=== PATIENT | female | born 1960 | race Caucasian/White ===

== ENCOUNTER 2019-08-29 07:27 | Outpatient (CLI) | payer BC, SELFPAY ==
[2019-08-29 07:54] LABS: Hemoglobin A1C 6.7 % (<5.7)
[2019-08-29 08:00] LABS: Cholesterol 184 mg/dL (0-200); HDL Direct 48 mg/dL; Triglycerides 101 mg/dL (<150)
[2019-08-29 08:11] LABS: LDL Cholesterol Direct 113 mg/dL
== END 2019-08-29 07:28 | disposition home or self-care (01) ==
PROVIDERS: PCP Internal Medicine; Visit Provider Nurse Practitioner
DX: E11.9 Type 2 diabetes mellitus without complications (principal)
CPT/HCPCS: 36415; 80061; 83036

== ENCOUNTER 2019-12-23 07:34 | Outpatient (CLI) | payer BC, SELFPAY ==
[2019-12-23 08:10] LABS: Hemoglobin A1C 6.4 % (<5.7)
[2019-12-23 08:11] LABS: Anion Gap 6 mmol/L (8-16); Blood Urea Nitrogen 14 mg/dL (7-17); Calcium 9.3 mg/dL (8.4-10.2); Carbon Dioxide 31 mmol/L (22-30); Chloride 102 mmol/L (98-107); Estimated Glomerular Filt Rate > 60; Glucose 130 mg/dL (65-105); Potassium 4.1 mmol/L (3.4-5.0); Sodium 139 mmol/L (137-145)
== END 2019-12-23 07:35 | disposition home or self-care (01) ==
LOC: ANHLAB 07:36
PROVIDERS: PCP Internal Medicine; Visit Provider Clinical Nurse Specialist
DX: E11.9 Type 2 diabetes mellitus without complications (principal)
CPT/HCPCS: 36415; 80048; 83036

== ENCOUNTER 2020-05-06 07:37 | Outpatient (CLI) | payer BC, SELFPAY ==
[2020-05-06 07:55] LABS: Basophils Absolute Auto 0.1 K/mm3 (0.0-0.1); Basophils Percent Auto 1.3 % (0.2-1.2); Eosinophils Absolute Auto 0.2 K/mm3 (0-0.3); Eosinophils Percent Auto 3.2 % (0-4.4); Hematocrit 40.9 % (37.0-47.0); Hemoglobin 13.9 g/dL (12.0-15.0); Immature Granulocyte Absolute 0.01 K/mm3 (0.00-0.031); Immature Granulocyte Percent A 0.2 % (0-0.5); Lymphocytes Absolute Auto 1.51 K/mm3 (0.9-3.2); Lymphocytes Percent Auto 28.5 % (18.3-44.2); Mean Corpuscular Hemoglobin 29.7 pg (26-34); Mean Corpuscular Volume 87.4 fl (80-100); Mean Platelet Volume 9.9 fl (7.4-10.4); Monocytes Absolute Auto 0.5 K/mm3 (0.1-0.6); Monocytes Percent Auto 9.6 % (2.6-8.5); Neutrophils Percent Auto 57.2 % (45.5-73.1); Platelet Count Result 211 k/mm3 (150-375); Red Blood Count 4.68 M/mm3 (4.2-5.4); Red Cell Distribution Width 12.1 % (11.5-14.5); White Blood Count 5.3 K/mm3 (4.5-10.0)
[2020-05-06 08:05] LABS: Cholesterol 184 mg/dL (0-200); HDL Direct 61 mg/dL; Triglycerides 72 mg/dL (<150)
[2020-05-06 08:16] LABS: LDL Cholesterol Direct 103 mg/dL
[2020-05-06 08:36] LABS: Hemoglobin A1C 6.5 % (<5.7)
== END 2020-05-06 07:38 | disposition home or self-care (01) ==
PROVIDERS: PCP Internal Medicine; Visit Provider Nurse Practitioner
DX: E11.9 Type 2 diabetes mellitus without complications (principal)
CPT/HCPCS: 36415; 80061; 83036; 85025

== ENCOUNTER 2020-09-07 07:37 | Outpatient (CLI) | payer BC, SELFPAY ==
[2020-09-07 09:08] LABS: Creatinine Urine 62.6 mg/dL
[2020-09-07 09:28] LABS: MALB Creatinine Ratio < 9.6 mg/g (0-30); Microalbumin Urine Random < 6.0 mg/L (0-16.7)
[2020-09-07 10:29] LABS: Anion Gap 9 mmol/L (8-16); Blood Urea Nitrogen 16 mg/dL (7-17); Carbon Dioxide 29 mmol/L (22-30); Chloride 102 mmol/L (98-107); Cholesterol 220 mg/dL (0-200); Estimated Glomerular Filt Rate > 60; Glucose 140 mg/dL (65-110); HDL Direct 60 mg/dL; Potassium 4.8 mmol/L (3.4-5.0); Sodium 140 mmol/L (137-145); Triglycerides 95 mg/dL (<150)
[2020-09-07 10:45] LABS: LDL Cholesterol Direct 127 mg/dL
[2020-09-09 18:42] LABS: Hemoglobin A1C 6.7 % (<5.7)
== END 2020-09-07 07:38 | disposition home or self-care (01) ==
PROVIDERS: PCP Internal Medicine; Visit Provider Nurse Practitioner
DX: E11.9 Type 2 diabetes mellitus without complications (principal)
CPT/HCPCS: 36415; 80048; 80061; 82043; 82607; 83036

== ENCOUNTER 2021-03-08 07:17 | Outpatient (CLI) | payer BC, SELFPAY ==
[2021-03-08 07:50] LABS: Anion Gap 3 mmol/L (8-16); Blood Urea Nitrogen 15 mg/dL (7-17); Calcium 9.4 mg/dL (8.4-10.2); Carbon Dioxide 30 mmol/L (22-30); Chloride 102 mmol/L (98-107); Cholesterol 211 mg/dL (0-200); Estimated Glomerular Filt Rate > 60; Glucose 154 mg/dL (65-110); HDL Direct 52 mg/dL; Potassium 4.1 mmol/L (3.4-5.0); Sodium 135 mmol/L (137-145); Triglycerides 84 mg/dL (<150)
[2021-03-08 08:01] LABS: LDL Cholesterol Direct 120 mg/dL
[2021-03-08 09:31] LABS: Hemoglobin A1C 6.9 % (<5.7)
== END 2021-03-08 07:18 | disposition home or self-care (01) ==
LOC: ANHLAB 07:19
PROVIDERS: PCP Internal Medicine; Visit Provider Nurse Practitioner
DX: E11.9 Type 2 diabetes mellitus without complications (principal)
CPT/HCPCS: 36415; 80048; 80061; 83036

== ENCOUNTER 2021-08-18 07:40 | Outpatient (CLI) | payer OTHER, SELFPAY ==
[2021-08-18 08:16] LABS: Anion Gap 6 mmol/L (8-16); Blood Urea Nitrogen 16 mg/dL (7-17); Calcium 9.3 mg/dL (8.4-10.2); Carbon Dioxide 30 mmol/L (22-30); Chloride 103 mmol/L (98-107); Estimated Glomerular Filt Rate > 60; Glucose 149 mg/dL (65-110); Potassium 3.8 mmol/L (3.4-5.0); Sodium 139 mmol/L (137-145)
[2021-08-18 08:20] LABS: Basophils Absolute Auto 0.1 K/mm3 (0.0-0.1); Basophils Percent Auto 1.1 % (0.2-1.2); Eosinophils Absolute Auto 0.3 K/mm3 (0-0.3); Eosinophils Percent Auto 4.4 % (0-4.4); Hematocrit 41.6 % (37.0-47.0); Hemoglobin 13.8 g/dL (12.0-15.0); Immature Granulocyte Absolute 0.01 K/mm3 (0.00-0.031); Immature Granulocyte Percent A 0.2 % (0-0.5); Lymphocytes Absolute Auto 1.83 K/mm3 (0.9-3.2); Lymphocytes Percent Auto 28.6 % (18.3-44.2); Mean Corpuscular HGB Conc 33.2 g/dl (32-36); Mean Corpuscular Hemoglobin 29.2 pg (26-34); Mean Corpuscular Volume 87.9 fl (80-100); Mean Platelet Volume 9.7 fl (7.4-10.4); Monocytes Absolute Auto 0.6 K/mm3 (0.1-0.6); Monocytes Percent Auto 9.5 % (2.6-8.5); Neutrophils Absolute Auto 3.6 K/mm3 (1.3-6.7); Neutrophils Percent Auto 56.2 % (45.5-73.1); Platelet Count Result 249 k/mm3 (150-375); Red Blood Count 4.73 M/mm3 (4.2-5.4); Red Cell Distribution Width 13.2 % (11.5-14.5); White Blood Count 6.4 K/mm3 (4.5-10.0)
[2021-08-18 08:39] LABS: Hemoglobin A1C 6.7 % (<5.7)
[2021-08-18 09:06] LABS: Creatinine Urine 26.8 mg/dL
[2021-08-18 11:01] LABS: Microalbumin Urine Random < 6.0 mg/L (0-16.7)
== END 2021-08-18 07:41 | disposition home or self-care (01) ==
LOC: ANHLAB 07:45
PROVIDERS: PCP Internal Medicine; Visit Provider Nurse Practitioner
DX: E11.9 Type 2 diabetes mellitus without complications (principal)
CPT/HCPCS: 36415; 80048; 82043; 83036; 85025

== ENCOUNTER 2022-01-15 07:20 | Outpatient (CLI) | payer OTHER, SELFPAY ==
[2022-01-15 07:59] LABS: Basophils Absolute Auto 0.1 K/mm3 (0.0-0.1); Basophils Percent Auto 1.2 % (0.2-1.2); Eosinophils Absolute Auto 0.4 K/mm3 (0-0.3); Eosinophils Percent Auto 7.1 % (0-4.4); Hematocrit 39.9 % (37.0-47.0); Hemoglobin 13.7 g/dL (12.0-15.0); Immature Granulocyte Absolute 0.02 K/mm3 (0.00-0.031); Immature Granulocyte Percent A 0.3 % (0-0.5); Lymphocytes Absolute Auto 2.04 K/mm3 (0.9-3.2); Lymphocytes Percent Auto 33.9 % (18.3-44.2); Mean Corpuscular HGB Conc 34.3 g/dl (32-36); Mean Corpuscular Hemoglobin 29.8 pg (26-34); Mean Corpuscular Volume 86.9 fl (80-100); Mean Platelet Volume 9.9 fl (7.4-10.4); Monocytes Absolute Auto 0.5 K/mm3 (0.1-0.6); Monocytes Percent Auto 8.5 % (2.6-8.5); Platelet Count Result 241 k/mm3 (150-375); Red Blood Count 4.59 M/mm3 (4.2-5.4); Red Cell Distribution Width 12.7 % (11.5-14.5)
[2022-01-15 08:09] LABS: Alanine Aminotransferase 29 U/L (6-35); Albumin Level 4.5 g/dL (3.5-5.1); Alkaline Phosphatase 69 U/L (38-126); Anion Gap 6 mmol/L (8-16); Aspartate Amino Transferase 25 U/L (14-36); Bilirubin,Total 0.5 mg/dL (0.2-1.3); Blood Urea Nitrogen 15 mg/dL (7-17); Calcium 8.9 mg/dL (8.4-10.2); Carbon Dioxide 29 mmol/L (22-30); Chloride 100 mmol/L (98-107); Cholesterol 221 mg/dL (0-200); Estimated Glomerular Filt Rate > 60; Glucose 159 mg/dL (65-110); HDL Direct 50 mg/dL; Potassium 3.9 mmol/L (3.4-5.0); Sodium 135 mmol/L (137-145); Triglycerides 109 mg/dL (<150)
[2022-01-15 08:21] LABS: LDL Cholesterol Direct 132 mg/dL
[2022-01-15 09:06] LABS: Creatinine Urine 43.1 mg/dL
[2022-01-15 09:17] LABS: MALB Creatinine Ratio < 13.9 mg/g (0-30); Microalbumin Urine Random < 6.0 mg/L (0-16.7)
[2022-01-15 10:22] LABS: Hemoglobin A1C 7.6 % (<5.7)
== END 2022-01-15 07:21 | disposition home or self-care (01) ==
PROVIDERS: PCP Internal Medicine; Visit Provider Nurse Practitioner
DX: E11.9 Type 2 diabetes mellitus without complications (principal)
CPT/HCPCS: 36415; 80053; 80061; 82043; 83036; 85025

== ENCOUNTER 2022-04-24 08:46 | Outpatient (CLI) | payer OTHER, SELFPAY ==
[2022-04-24 19:38] LABS: Hemoglobin A1C 7.2 % (<5.7)
[2022-04-24 19:48] LABS: Anion Gap 8 mmol/L (8-16); Blood Urea Nitrogen 13 mg/dL (7-17); Calcium 9.3 mg/dL (8.4-10.2); Carbon Dioxide 28 mmol/L (22-30); Chloride 104 mmol/L (98-107); Cholesterol 170 mg/dL (0-200); Estimated Glomerular Filt Rate > 60; Glucose 140 mg/dL (65-110); HDL Direct 52 mg/dL; Potassium 4.1 mmol/L (3.4-5.0); Sodium 140 mmol/L (137-145); Triglycerides 113 mg/dL (<150)
[2022-04-24 19:59] LABS: LDL Cholesterol Direct 91 mg/dL
[2022-04-24 20:04] LABS: Vitamin D 25 Hydroxy 28.7 ng/mL
[2022-04-24 20:13] LABS: Creatinine Urine 72.7 mg/dL
== END 2022-04-24 08:47 | disposition home or self-care (01) ==
LOC: ANHGOSHLAB 08:47
PROVIDERS: PCP Internal Medicine; Visit Provider Nurse Practitioner
DX: M85.80 Other specified disorders of bone density and structure, unspecified site (principal); E11.9 Type 2 diabetes mellitus without complications
CPT/HCPCS: 36415; 80048; 80061; 82043; 82306; 82607; 83036

== ENCOUNTER 2022-08-21 08:39 | Outpatient (CLI) | payer OTHER, SELFPAY ==
[2022-08-21 19:13] LABS: Cholesterol 153 mg/dL (0-200); HDL Direct 37 mg/dL; Triglycerides 108 mg/dL (<150)
[2022-08-21 19:23] LABS: LDL Cholesterol Direct 87 mg/dL
[2022-08-21 19:59] LABS: Vitamin D 25 Hydroxy 33.4 ng/mL
[2022-08-21 20:42] LABS: Hemoglobin A1C 7.1 % (<5.7)
== END 2022-08-21 08:40 | disposition home or self-care (01) ==
LOC: ANHGOSHLAB 08:40
PROVIDERS: PCP Internal Medicine; Visit Provider Nurse Practitioner
DX: E11.9 Type 2 diabetes mellitus without complications (principal); E55.9 Vitamin D deficiency, unspecified
CPT/HCPCS: 36415; 80061; 82306; 83036

== ENCOUNTER 2022-09-18 11:40 | Outpatient (CLI) | payer OTHER, SELFPAY ==
[2022-09-18 18:13] LABS: Basophils Absolute Auto 0.1 K/mm3 (0.0-0.1); Basophils Percent Auto 1.1 % (0.2-1.2); Eosinophils Absolute Auto 0.1 K/mm3 (0-0.3); Eosinophils Percent Auto 1.8 % (0-4.4); Hematocrit 40.9 % (37.0-47.0); Hemoglobin 13.4 g/dL (12.0-15.0); Immature Granulocyte Absolute 0.01 K/mm3 (0.00-0.031); Immature Granulocyte Percent A 0.2 % (0-0.5); Lymphocytes Absolute Auto 1.79 K/mm3 (0.9-3.2); Lymphocytes Percent Auto 29.3 % (18.3-44.2); Mean Corpuscular HGB Conc 32.8 g/dl (32-36); Mean Corpuscular Hemoglobin 28.9 pg (26-34); Mean Corpuscular Volume 88.3 fl (80-100); Mean Platelet Volume 11.5 fl (7.4-10.4); Monocytes Absolute Auto 0.6 K/mm3 (0.1-0.6); Monocytes Percent Auto 9.7 % (2.6-8.5); Neutrophils Absolute Auto 3.5 K/mm3 (1.3-6.7); Neutrophils Percent Auto 57.9 % (45.5-73.1); Platelet Count Result 258 k/mm3 (150-375); Red Blood Count 4.63 M/mm3 (4.2-5.4); Red Cell Distribution Width 13.3 % (11.5-14.5); White Blood Count 6.1 K/mm3 (4.5-10.0)
[2022-09-18 18:38] LABS: Alanine Aminotransferase 45 U/L (6-35); Albumin Level 4.3 g/dL (3.5-5.1); Alkaline Phosphatase 67 U/L (38-126); Anion Gap 7 mmol/L (8-16); Aspartate Amino Transferase 47 U/L (14-36); Bilirubin,Total 0.4 mg/dL (0.2-1.3); Blood Urea Nitrogen 17 mg/dL (7-17); Calcium 9.1 mg/dL (8.4-10.2); Carbon Dioxide 25 mmol/L (22-30); Chloride 103 mmol/L (98-107); Estimated Glomerular Filt Rate > 60; Glucose 107 mg/dL (65-110); Sodium 135 mmol/L (137-145)
[2022-09-18 18:55] LABS: Erythrocyte Sedimentation Rate 12 mm/hr (0-20)
[2022-09-18 20:39] LABS: Potassium 4.1 mmol/L (3.4-5.0)
[2022-09-23 15:21] LABS: Immunoglobulin A 160 mg/dL (70-320); TTG IGA AB <1.0 U/mL (<15.0)
== END 2022-09-18 11:41 | disposition home or self-care (01) ==
LOC: ANHGOSHLAB 11:41
PROVIDERS: PCP Internal Medicine; Visit Provider Nurse Practitioner
DX: R19.7 Diarrhea, unspecified (principal)
CPT/HCPCS: 36415; 80053; 82784; 85025; 85652; 86364

== ENCOUNTER 2022-09-19 08:05 | Outpatient (NON) | payer OTHER, SELFPAY ==
[2022-09-19 10:11] LABS: Toxigenic C. Diff NEGATIVE (NEGATIVE)
== END 2022-09-19 08:06 | disposition home or self-care (01) ==
PROVIDERS: PCP Internal Medicine; Visit Provider Nurse Practitioner
DX: R19.7 Diarrhea, unspecified (principal)
CPT/HCPCS: 87045; 87177; 87209; 87427; 87449; 87493; 89055

== ENCOUNTER 2023-02-12 08:27 | Outpatient (CLI) | payer OTHER, SELFPAY ==
[2023-02-12 19:41] LABS: Basophils Absolute Auto 0.1 K/mm3 (0.0-0.1); Basophils Percent Auto 1.7 % (0.2-1.2); Eosinophils Absolute Auto 0.1 K/mm3 (0-0.3); Eosinophils Percent Auto 2.3 % (0-4.4); Hematocrit 43.9 % (37.0-47.0); Hemoglobin 14.2 g/dL (12.0-15.0); Immature Granulocyte Absolute 0.01 K/mm3 (0.00-0.031); Immature Granulocyte Percent A 0.2 % (0-0.5); Lymphocytes Absolute Auto 1.54 K/mm3 (0.9-3.2); Lymphocytes Percent Auto 32.2 % (18.3-44.2); Mean Corpuscular HGB Conc 32.3 g/dl (32-36); Mean Corpuscular Hemoglobin 29.8 pg (26-34); Mean Corpuscular Volume 92.2 fl (80-100); Mean Platelet Volume 10.2 fl (7.4-10.4); Monocytes Absolute Auto 0.5 K/mm3 (0.1-0.6); Monocytes Percent Auto 9.4 % (2.6-8.5); Neutrophils Absolute Auto 2.6 K/mm3 (1.3-6.7); Neutrophils Percent Auto 54.2 % (45.5-73.1); Platelet Count Result 262 k/mm3 (150-375); Red Blood Count 4.76 M/mm3 (4.2-5.4); White Blood Count 4.8 K/mm3 (4.5-10.0)
[2023-02-12 19:46] LABS: Hemoglobin A1C 7.1 % (<5.7)
[2023-02-12 19:51] LABS: Alanine Aminotransferase 40 U/L (6-35); Albumin Level 4.5 g/dL (3.5-5.1); Alkaline Phosphatase 90 U/L (38-126); Anion Gap 9 mmol/L (8-16); Aspartate Amino Transferase 35 U/L (14-36); Bilirubin,Total 0.6 mg/dL (0.2-1.3); Blood Urea Nitrogen 17 mg/dL (7-17); Calcium 9.3 mg/dL (8.4-10.2); Carbon Dioxide 31 mmol/L (22-30); Chloride 100 mmol/L (98-107); Cholesterol 185 mg/dL (0-200); Estimated Glomerular Filt Rate > 60; Glucose 139 mg/dL (65-110); HDL Direct 50 mg/dL; Potassium 3.9 mmol/L (3.4-5.0); Sodium 140 mmol/L (137-145); Triglycerides 78 mg/dL (<150)
[2023-02-12 19:52] LABS: LDL Cholesterol Direct 115 mg/dL
[2023-02-12 20:11] LABS: Creatinine Urine 9.5 mg/dL
[2023-02-12 20:51] LABS: Microalbumin Urine Random < 6.0 mg/L (0-16.7)
== END 2023-02-12 08:28 | disposition home or self-care (01) ==
LOC: ANHGOSHLAB 08:32
PROVIDERS: PCP Internal Medicine; Visit Provider Nurse Practitioner
DX: E11.9 Type 2 diabetes mellitus without complications (principal)
CPT/HCPCS: 36415; 80053; 80061; 82043; 83036; 85025

== ENCOUNTER 2023-06-01 08:03 | Outpatient (CLI) | payer OTHER, SELFPAY ==
[2023-06-01 18:50] LABS: Basophils Absolute Auto 0.1 K/mm3 (0.0-0.1); Basophils Percent Auto 1.4 % (0.2-1.2); Eosinophils Absolute Auto 0.1 K/mm3 (0-0.3); Eosinophils Percent Auto 2.4 % (0-4.4); Hematocrit 42.4 % (37.0-47.0); Hemoglobin 13.8 g/dL (12.0-15.0); Lymphocytes Absolute Auto 1.77 K/mm3 (0.9-3.2); Lymphocytes Percent Auto 29.9 % (18.3-44.2); Mean Corpuscular HGB Conc 32.5 g/dl (32-36); Mean Corpuscular Hemoglobin 29.4 pg (26-34); Mean Corpuscular Volume 90.2 fl (80-100); Monocytes Absolute Auto 0.6 K/mm3 (0.1-0.6); Neutrophils Absolute Auto 3.3 K/mm3 (1.3-6.7); Neutrophils Percent Auto 56.3 % (45.5-73.1); Platelet Count Result 267 k/mm3 (150-375); Red Cell Distribution Width 12.9 % (11.5-14.5); White Blood Count 5.9 K/mm3 (4.5-10.0)
[2023-06-01 19:15] LABS: Alanine Aminotransferase 37 U/L (6-35); Albumin Level 4.7 g/dL (3.5-5.1); Alkaline Phosphatase 83 U/L (38-126); Anion Gap 9 mmol/L (4-12); Aspartate Amino Transferase 35 U/L (14-36); Bilirubin,Total 0.5 mg/dL (0.2-1.3); Blood Urea Nitrogen 19 mg/dL (7-17); Calcium 9.7 mg/dL (8.4-10.2); Carbon Dioxide 28 mmol/L (22-30); Chloride 102 mmol/L (98-107); Cholesterol 151 mg/dL (0-200); Estimated Glomerular Filt Rate > 60; Glucose 155 mg/dL (65-110); HDL Direct 50 mg/dL; Sodium 139 mmol/L (137-145); Triglycerides 90 mg/dL (<150)
[2023-06-01 19:26] LABS: LDL Cholesterol Direct 90 mg/dL
[2023-06-01 20:00] LABS: Vitamin D 25 Hydroxy 30.3 ng/mL
[2023-06-01 20:20] LABS: Hemoglobin A1C 7.1 % (<5.7)
== END 2023-06-01 08:04 | disposition home or self-care (01) ==
LOC: ANHGOSHLAB 08:05
PROVIDERS: PCP Internal Medicine; Visit Provider Nurse Practitioner
DX: E55.9 Vitamin D deficiency, unspecified (principal); E11.9 Type 2 diabetes mellitus without complications
CPT/HCPCS: 36415; 80053; 80061; 82306; 82607; 83036; 85025

== ENCOUNTER 2024-02-15 08:02 | Outpatient (CLI) | payer OTHER, SELFPAY ==
[2024-02-15 14:36] LABS: Alanine Aminotransferase 49 U/L (6-35); Albumin Level 4.3 g/dL (3.5-5.1); Alkaline Phosphatase 81 U/L (38-126); Anion Gap 6 mmol/L (4-12); Aspartate Amino Transferase 34 U/L (14-36); Bilirubin,Total 0.6 mg/dL (0.2-1.3); Blood Urea Nitrogen 17 mg/dL (7-17); Calcium 9.3 mg/dL (8.4-10.2); Carbon Dioxide 32 mmol/L (22-30); Chloride 100 mmol/L (98-107); Estimated Glomerular Filt Rate > 60; Glucose 191 mg/dL (65-110); Potassium 4.2 mmol/L (3.4-5.0); Sodium 138 mmol/L (137-145)
[2024-02-15 14:54] LABS: Creatinine Urine 10.9 mg/dL
[2024-02-15 15:01] LABS: MALB Creatinine Ratio < 55.0 mg/g (0-30); Microalbumin Urine Random < 6.0 mg/L (0-16.7)
[2024-02-16 11:17] LABS: Hemoglobin A1C 8.1 % (<5.7)
== END 2024-02-15 08:03 | disposition home or self-care (01) ==
LOC: ANHGOSHLAB 08:05
PROVIDERS: PCP Internal Medicine; Visit Provider Nurse Practitioner
DX: E11.9 Type 2 diabetes mellitus without complications (principal)
CPT/HCPCS: 36415; 80053; 82043; 83036

== ENCOUNTER 2024-04-05 13:12 | Outpatient (CLI) | payer MEDICARE, SELFPAY ==
--- NOTE | ~2024-04-05 | DEXA_ITS ---
Bone Density Report Name: FANG GALLO Age: 63 Sex: Female Ethnicity: White Date of : 1960 Indication: postmenopausal; screening for osteoporosis; Referring Provider: Brigitte Barnard Study: Bone densitometry was performed. Exam Date: April 05, 2024 Accession number: [id number] Bone Density: Region BMD T-score Z-score Classification AP Spine(L1-L4) 0.936 -1.0 0.8 Normal Femoral Neck (Left) 0.551 -2.7 -1.2 Osteoporosis Total Hip (Left) 0.730 -1.7 -0.5 Osteopenia Femoral Neck (Right) 0.555 -2.6 -1.1 Osteoporosis Total Hip (Right) 0.737 -1.7 -0.4 Osteopenia Femoral Neck Mean 0.553 -2.7 -1.1 Osteoporosis Total Hip Mean 0.733 -1.7 -0.5 Osteopenia World Health Organization criteria for BMD impression classify patients as: Normal (T-score at or above -1.0), Osteopenia (T-score between -1.0 and -2.5), or Osteoporosis (T-score at or below -2.5). 10-year Fracture Risk: FRAX not reported because: Some T-score for Spine Total or Hip Total or Femoral Neck at or below -2.5 Treated for osteoporosis Clinical Information Provided by Patient: Is being treated for osteoporosis Has used the following medications: Vitamin D Patient maximum height was 64 Menopause Age: 48 No regular weight bearing exercise Drinks caffeinated beverages Onset of menses at age 9 Number of children 1 Impression: The patient has osteoporosis, based on the Left Femoral Neck T-score. Discussion: It is important to ask patients whether they are taking their medications and to encourage continued and appropriate compliance with their osteoporosis therapies to reduce fracture risk. It is also important to review their risk factors and encourage appropriate calcium and vitamin D intakes, exercise, fall prevention and other lifestyle measures. Follow-Up: Consider a repeat BMD and Vertebral Fracture Assessment (VFA) exam in 2 years or sooner if medically necessary, to reassess this patient's status. Reported by: SULEMA on 04/05/2024 1:45:00 PM. Reviewed, dictated and finalized at location A.
== END 2024-04-05 13:13 | disposition home or self-care (01) ==
LOC: CHSIMG 13:14
PROVIDERS: PCP Internal Medicine; Visit Provider Nurse Practitioner
DX: Z12.31 Encounter for screening mammogram for malignant neoplasm of breast (principal); Z78.0 Asymptomatic menopausal state; M85.89 Other specified disorders of bone density and structure, multiple sites; M81.0 Age-related osteoporosis without current pathological fracture
CPT/HCPCS: 77063; 77067; 77080

== ENCOUNTER 2024-04-10 00:13 | Day surgery (SDC) | payer MEDICARE, SELFPAY ==
[2024-03-30 09:03] VITALS: BMI 25.7
[2024-04-10 12:30] VITALS: BP 124/65; PULSE 79; RESP 16; TEMP 35.9; O2SAT 100; BMI 25.2
--- NOTE | 2024-04-10 12:41 | WPDANESEPPF ---
Anes - Initial Pre Proc Eval Procedure: Operation Date: 04/10/24 13:45 Proposed Procedures p Esophagogastroduodenoscopy & Colonoscopy - Melecio Mendieta MD Date/Time: 04/10/24 12:41 Surgeon: Melecio Mendieta MD Pre Op Diagnosis: GERD,Screening,Family hx of malignant neoplasm Patient Data Age: 63 Gender: F Height: 1.63 m Weight: 68.1 kg Allergies Allergy/AdvReac Type Severity Reaction Status Date / Time lactose Allergy Unknown Diarrhea Verified 04/10/24 12:38 ezetimibe (From Zetia) AdvReac Mild Gastrointestinal Verified 04/10/24 12:38 Upset Penicillins AdvReac Rash Verified 04/10/24 12:38 Home Medications ?Medication ?Instructions ?Recorded ?Confirmed ?Type metformin 500 mg tablet See Rx Instructions .Route 02/29/24 04/10/24 Rx .COMPLEX #270 tabs simvastatin 5 mg tablet See Rx Instructions .Route 02/29/24 03/30/24 Rx .COMPLEX #90 tabs Patient hx anesthesia problems: none Family hx anesthesia problems: none Results Review: All pre-operative results and documents have been reviewed as part of the pre-operative evaluation. [facility] Past Medical History Medical History Fecal urgency History of anal fissures COVID-19 Uses hearing aid Lichen planus Endometrial cancer Osteopenia Osteoarthritis Chronic pain Type 2 diabetes mellitus Hyperlipidemia Surgical History Surgical History H/O: hysterectomy 2008 Family History Family History Grandparent Cerebrovascular accident Diabetes mellitus Mother Family history of diabetes mellitus in first degree relative Cerebral aneurysm Sibling Heart disease Father Cancer Other Family history of arthritis Social History Social History Social History: Caffeine-2 daily Smoking status: Never smoker Alcohol intake: never Substance use: never Substance use type: does not use Do You Feel Safe in your Home?: Yes Lack of Transportation: No Lack of Food: Never True Current Housing: I Have Housing Concerned About Future Housing: No Difficulty Paying Gas/Electric Bills: No Difficulty Paying for Meds: No Currently Unemployed: No Education: Bachelor's Degree Difficulty w/ Childcare or Family Care: No Anes - Eval Final PreProcedure Day of Procedure 04/10/24 12:41 Patient weight: normal Heart: regular rate and rhythm Lungs: clear to auscultation Airway: Mallampati scale class II Neurological: alert and oriented Last oral intake: >/= 8 hours ASA classification: III Emergent: no Anesthetic plan: proceed Anesthesia type and monitoring: general GIVS and standard monitoring Results Review: All pre-operative results and documents have been reviewed as part of the pre-operative evaluation. Informed Consent: The patient's anesthetic plan and its attendant risks and benefits were discussed with the patient/family/POA. Questions were solicited and answers provided to the satisfaction of the patient/family/POA.
[2024-04-10] MEDS: LACTATED RINGERS 1,000 ML 150 ML IV CONT (12:52)
[2024-04-10 12:54] LABS: Glucose Point of Care 149 mg/dl (65-105)
--- NOTE | 2024-04-10 13:31 | PM.IMHP ---
H&P: HPI History of Present Illness Date/Time: 04/10/24 13:31 Chief Complaint: GERD-screening colonoscopy Narrative: this patient has been suffering from GERD for several years, especially when eating certain food items such as spicy foods, tomato sauce coffee etc.. She denies dysphagia, unintentional weight loss, nausea vomiting. In addition, she is due for her next screening colonoscopy which was around 10 years ago. Review of Systems Review of Systems: All systems reviewed & are unremarkable except as noted in HPI and below PMFSH Past Medical History Medical History Fecal urgency History of anal fissures COVID-19 Uses hearing aid Lichen planus Endometrial cancer Osteopenia Osteoarthritis Chronic pain Type 2 diabetes mellitus Hyperlipidemia Surgical History Surgical History H/O: hysterectomy 2007 Family History Family History Grandparent Cerebrovascular accident Diabetes mellitus Mother Family history of diabetes mellitus in first degree relative Cerebral aneurysm Sibling Heart disease Father Cancer Other Family history of arthritis Social History Social History Social History: Caffeine-2 daily Smoking status: Never smoker Alcohol intake: never Substance use: never Substance use type: does not use Do You Feel Safe in your Home?: Yes Lack of Transportation: No Lack of Food: Never True Current Housing: I Have Housing Concerned About Future Housing: No Difficulty Paying Gas/Electric Bills: No Difficulty Paying for Meds: No Currently Unemployed: No Education: Bachelor's Degree Difficulty w/ Childcare or Family Care: No Meds Home Medications and Allergies Home Medications ?Medication ?Instructions ?Recorded ?Confirmed ?Type metformin 500 mg tablet See Rx Instructions .Route 02/29/24 04/10/24 Rx .COMPLEX #270 tabs simvastatin 5 mg tablet See Rx Instructions .Route 02/29/24 03/30/24 Rx .COMPLEX #90 tabs Allergies Allergy/AdvReac Type Severity Reaction Status Date / Time lactose Allergy Unknown Diarrhea Verified 04/10/24 12:38 ezetimibe (From Zetia) AdvReac Mild Gastrointestinal Verified 04/10/24 12:38 Upset Penicillins AdvReac Rash Verified 04/10/24 12:38 Vital Signs Vital Signs - 24 hr 04/10/24 12:30 Temperature 96.6 F L Pulse Rate 79 Respiratory Rate 16 Blood Pressure 124/65 Pulse Oximetry 100 Oxygen Delivery Room Air Exam Const: General: cooperative and healthy appearing Resp: Effort & Inspection: normal respiratory effort and able to speak in complete sentences Auscultation: clear to auscultation bilaterally Cardio: Rate: regular rate Rhythm: regular rhythm GI: Inspection: normal to inspection GI Palp: No No hepatosplenomegaly present Auscultation: normal bowel sounds Rectal Exam: deferred Skin: General skin exam: normal color Psych: Appearance: grossly normal Mental Status: mental status grossly normal Assessment and Plan Assessment and plan (1) Screening for colon cancer: Code(s): Z12.11 - Encounter for screening for malignant neoplasm of colon Status: Acute Assessment and Plan: The patient is deemed a good candidate for the procedures. Consent signed. Will proceed. (2) GERD (gastroesophageal reflux disease): Qualifiers: Esophagitis presence: esophagitis presence not specified Qualified Code(s): K21.9 - Gastro-esophageal reflux disease without esophagitis Code(s): K21.9 - Gastro-esophageal reflux disease without esophagitis Status: Acute
--- NOTE | 2024-04-10 13:53 | SUR.OPER ---
EGD ended 1349 colonoscopy started 1354
[2024-04-10 14:12] VITALS: BP 95/55; PULSE 73; RESP 20; O2SAT 100
[2024-04-10 14:22] VITALS: BP 105/61; PULSE 70; RESP 21; O2SAT 99
[2024-04-10 14:32] VITALS: BP 123/71; PULSE 83; RESP 20; O2SAT 100
== END 2024-04-10 14:44 | disposition home or self-care (01) ==
PROVIDERS: PCP Internal Medicine; Referring Provider Nurse Practitioner; Visit Provider Internal Medicine Gastroenterology
PROC: 0DJ08ZZ Inspection of Upper Intestinal Tract, Via Natural or Artificial Opening Endoscopic (ICD-10-PCS; CPT 45378; principal; 2024-04-10 13:45)
DX: Z12.11 Encounter for screening for malignant neoplasm of colon (principal); K57.30 Diverticulosis of large intestine without perforation or abscess without bleeding; K64.8 Other hemorrhoids; K21.9 Gastro-esophageal reflux disease without esophagitis; K29.51 Unspecified chronic gastritis with bleeding; Z85.42 Personal history of malignant neoplasm of other parts of uterus; E11.9 Type 2 diabetes mellitus without complications; E78.5 Hyperlipidemia, unspecified
CPT/HCPCS: 43239; G0121; 82948; 88305; J2003; J2704; J7120

== ENCOUNTER 2024-06-12 07:56 | Outpatient (CLI) | payer MEDICARE, SELFPAY ==
--- OUTSIDE RECORDS SUMMARY | 2024-06-12 08:03 | XMS_ITS | Clinical Summary ---
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 Gender Identity Not on file Sexual Orientation Not on file Plan of Treatment Health Maintenance Due Date Last Done Comments DEXA Bone Density 1960 Hepatitis C Virus (HCV) Screening 1960 TdaP Immunization 1960 Pap Smear 11/16/1979 Cervical Cancer Screening (CCS) 1988 HPV/Cotest 1988 Colonoscopy 11/16/2003 Colorectal Cancer Screening 11/16/2003 Cologuard 2008 Immunochemical Fecal Occult Blood 2008 Mammogram 2008 Pneumococcal Immunization (5 0+ years) (1 of 1 - PCV) 2008 Zoster Immunization (1 of 2) 2008 Influenza Immunization (#1) 2023 SARS-COV-2 Immunization ( - 2023-25 season) 2023 Respiratory Syncytial Virus (RSV) Immunization (Adult) (1 - 1-dose 75+ series) 2033 Hepatitis B Immunization Aged Out No longer eligible based on patient's age to complete this topic Meningococcal Immunization (ACWY) Aged Out No longer eligible based on patient's age to complete this topic Pneumococcal Immunization Combined Aged Out No longer eligible based on patient's age to complete this topic Rotavirus Immunization Aged Out No lo nger eligible based on patient's age to complete this topic
--- OUTSIDE RECORDS SUMMARY | 2024-06-12 08:03 | XMS_ITS | Clinical Summary ---
Author Organization [facility] Address [facility] [place] [address] Care Team Providers Care Manager Field Investigations Name Role Phone Aroldo Farmer DO Primary Care Provider Social History Tobacco Use Types Packs/Day Years Used Date Smoking Tobacco: Never Assessed Comments Unknown Sex and Gender Information Value Date Recorded Sex Assigned at Not on file Legal Sex Female 4:27 PM CDT Gender Identity Not on file Sexual Orientation Not on file Plan of Treatment Health Maintenance Due Date Last Done Comments Colorectal Cancer Screening Colonoscopy (10 Years) 1960 Hepatitis C 1976 DTaP, Tdap and Td Vaccines ( 1 - Tdap) 1977 Mammogram Screening 1998 Pneumococcal Vaccine: 50+ Ye ars (1 of 1 - PCV) 2008 Zoster Vaccines (1 of 2) 2008 COVID-19 Vaccine ( - 2023-2 5 season) 2023 Dexa Scan (General) 11/16/2023 RSV Immunization or 60+ Years (1 - 1-dose 75+ series) 2033 Meningococcal B Vaccine Aged Out No l onger eligible based on patient's age to complete this topic Meningococcal Vaccine Aged Out No mehreen angela eligible based on patient's age to complete this topic RSV Immunizations Under 20 Months Aged Out No longer eligible based on patient's age to complete this topic Care Teams Manager Field Investigations Relationship Specialty Start Date End Date Aroldo Farmer DO [address] [facility] [address] [place] [address] PCP - General 07/14/13
[2024-06-12 12:56] LABS: Alanine Aminotransferase 46 U/L (6-35); Albumin Level 4.6 g/dL (3.5-5.1); Alkaline Phosphatase 70 U/L (38-126); Anion Gap 8 mmol/L (4-12); Aspartate Amino Transferase 40 U/L (14-36); Bilirubin,Total 0.7 mg/dL (0.2-1.3); Blood Urea Nitrogen 12 mg/dL (7-17); Calcium 9.2 mg/dL (8.4-10.2); Carbon Dioxide 30 mmol/L (22-30); Chloride 102 mmol/L (98-107); Cholesterol 204 mg/dL (0-200); Estimated Glomerular Filt Rate > 60; Glucose 154 mg/dL (65-110); HDL Direct 56 mg/dL; Potassium 4.6 mmol/L (3.4-5.0); Sodium 140 mmol/L (137-145); Triglycerides 96 mg/dL (<150)
[2024-06-12 13:07] LABS: LDL Cholesterol Direct 117 mg/dL
[2024-06-12 13:53] LABS: Hemoglobin A1C 7.5 % (<5.7)
[2024-06-12 13:56] LABS: Vitamin D 25 Hydroxy 26.6 ng/mL
[2024-06-12 14:26] LABS: Hepatitis C Virus Antibody Negative (Negative)
== END 2024-06-12 07:57 | disposition home or self-care (01) ==
LOC: ANHGOSHLAB 07:57
PROVIDERS: PCP Internal Medicine; Visit Provider Nurse Practitioner
DX: E11.9 Type 2 diabetes mellitus without complications (principal); R74.8 Abnormal levels of other serum enzymes; E55.9 Vitamin D deficiency, unspecified
CPT/HCPCS: 36415; 80053; 80061; 82306; 83036; 86803

== ENCOUNTER 2024-07-17 08:17 | Outpatient (CLI) | payer MEDICARE, SELFPAY ==
--- NOTE | ~2024-07-17 | US_ITS ---
Limited Abdominal Sonogram: Real-time sonographic imaging of the right upper quadrant was performed. Clinical History: Abnormal serum enzyme levels Findings: The liver appears mildly echogenic, with no evidence of mass lesion or bile duct dilatatio n. Main portal vein demonstrates normal direction of flow. The gallbladder is well distended, and leticia ears normal with no evidence of gallstone or wall thickening. The common bile duct measures 4 mm. Th e visualized pancreas, aorta, and IVC are unremarkable. Impression: Probable diffuse fatty infiltration of liver. Reviewed, dictated and finalized at location M. Impression: Probable diffuse fatty infiltration of liver.
== END 2024-07-17 08:18 | disposition home or self-care (01) ==
LOC: GOSHIMG 08:17
PROVIDERS: PCP Nurse Practitioner; Visit Provider Nurse Practitioner
DX: R74.8 Abnormal levels of other serum enzymes (principal)
CPT/HCPCS: 76705

== ENCOUNTER 2024-07-17 08:33 | Outpatient (CLI) | payer MEDICARE, SELFPAY ==
--- OUTSIDE RECORDS SUMMARY | 2024-07-17 08:54 | XMS_ITS | Clinical Summary ---
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
[2024-07-17 14:06] LABS: Hepatitis B Surface Antigen Negative (Negative)
[2024-07-17 14:17] LABS: HIV 1/2 Ab P24 Ag Result Negative (Negative)
[2024-07-17 14:23] LABS: Hepatitis C Virus Antibody Negative (Negative)
[2024-07-17 15:28] LABS: Iron 76 ug/dL (37-170)
[2024-07-17 15:40] LABS: Percent Iron Saturation 21 % (20-50)
== END 2024-07-17 08:34 | disposition home or self-care (01) ==
PROVIDERS: PCP Nurse Practitioner; Visit Provider Nurse Practitioner
DX: R74.8 Abnormal levels of other serum enzymes (principal); Z11.4 Encounter for screening for human immunodeficiency virus [HIV]
CPT/HCPCS: 36415; 83540; 83550; 84443; 86703; 86803; 87340; G0432

== ENCOUNTER 2024-11-21 07:51 | Outpatient (CLI) | payer MEDICARE, SELFPAY ==
--- OUTSIDE RECORDS SUMMARY | 2024-11-21 08:00 | XMS_ITS | Clinical Summary ---
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 Gender Identity Not on file Sexual Orientation Not on file Plan of Treatment Health Maintenance Due Date Last Done Comments Hepatitis C Virus (HCV) Screening 1960 TdaP Immunization 1960 Pap Smear 11/16/1979 Cervical Cancer Screening (CCS) 1988 HPV/Cotest 1988 Cologuard 11/16/2003 Colonoscopy 11/16/2003 Colorectal Cancer Screening 11/16/2003 Immunochemical Fecal Occult Blood 11/16/2003 Pneumococcal Immunization (5 0+ years) (1 of 1 - PCV) 2008 Zoster Immunization (1 of 2) 2008 Influenza Immunization (#1) 2024 SARS-COV-2 Immunization (2023- season) 2024 Respiratory Syncytial Virus (RSV) Immunization (Adult) (1 - 1-dose 75+ series) 2033 Hepatitis B Immunization Aged Out No longer eligible based on patient's age to complete this topic Human Papillomavirus (HPV) Immunization Aged Out No longer eligible b ased on patient's age to complete this topic Meningococcal Immunization (ACWY) Aged Out No longer eligible based on patient's age to complete this topic Rotavirus Immunization Aged Out No lo nger eligible based on patient's age to complete this topic
--- OUTSIDE RECORDS SUMMARY | 2024-11-21 08:00 | XMS_ITS | Clinical Summary ---
Author Organization [facility] Address [address] [facility] [place] [address] Care Team Providers Care Remote Coders Name Role Phone Unavailable Primary Care Provider Unavailabl e Source Comments [facility],non-owned Affiliates and Associated Physician Practices is amultiple site organization consisting of ambulatory clinics and hospital sitesin [place], [place], [place] and [place]. This disclosure is being madepursuant to the Care Everywhere program and may not contain all information available regarding this patient. Last updated 17.[facility] Encounters Date Type Department Care Team Description 09/19/2024 Travel from Last 3 Months Social History Tobacco Use Types Packs/Day Years Used Date Smoking Tobacco: Never Assessed Comments Unknown Sex and Gender Information Value Date Recorded Sex Assigned at Not on file Legal Sex Female 4:36 PM CDT Gender Identity Not on file Sexual Orientation Not on file Plan of Treatment Upcoming Encounters Date Type Department Care Team (Late st Contact Info) Description 12/26/2024 2:00 PM SOLAR PANEL INSTALLER Procedure visit [facility] [address] [place] [id number] 12/26/2024 2:30 PM SOLAR PANEL INSTALLER Office Visit [facility] [address] [place] [id number] Anitha Kim, OPERATIONS SUPERINTENDENT-DIRECTOR OF EMERGENCY NURSING [address] [place] [address] [facility] [place] [address] Health Maintenance Due Date Last Done Comments BONE DENSITY TESTING 1960 COLOGUARD (AGES 45-75) - COL ON CA SCREENING 1960 COLON MONITORING 1960 COLONOSCOPY - COLON CA SCREENING 1958 CT COLONOGRAPHY - COLON CA SCREENING 1960 Colorectal Cancer Screening 1960 FIT - COLON CA SCREENING 1960 FLEX SIG - COLON CA SCREENING 1960 LIPID TESTING 1960 MAMMOGRAM 1960 HEPATITIS C SCREENING 11/10/1976 DTAP/TDAP/TD VACCINES (1 - Tdap) 1977 PNEUMOCOCCAL VACCINE 50+ (1 of 1 - PCV) 2008 ZOSTER VACCINE (1 of 2) 2008 DEPRESSION SCREENING 02/09/2024 MEDICARE AWV CALENDAR YEAR 2024 COVID-19 VACCINE (1 - 2023-2 5 season) 2024 INFLUENZA VACCINE (#1) 2024 Respiratory Syncytial Virus (RSV) Vaccine Pt: or over 60 yrs (1 - 1-dose 75+ series) 2033 HEPATITIS B VACCINE Aged Out No longe r eligible based on patient's age to complete this topic HIB VACCINE Aged Out No longer eligi ble based on patient's age to complete this topic HPV VACCINE Aged Out No longer eligi ble based on patient's age to complete this topic MENINGOCOCCAL (Group B) VACC INE SHARED DECISION-MAKING Aged Out No longer eligibl e based on patient's age to complete this topic MENINGOCOCCAL GROUPS A/C/Y/W VACCINE Aged Out No longer eligible b ased on patient's age to complete this topic Insurance [employer] MEDICARE ADV SELF PAY NO INSURANCE Member Subscriber Plan / Payer (Ef fective for All Dates) Name:Fang Shabazz Member ID:Not on file Relation to Subscriber:Not on file Name:FANG SHABAZZ Subscriber ID:Not on file (Home) Address: [facility] [place] [address] Payer ID:Not on file Group ID:Not on file Type:Self Pay Address: [place], [place]
[2024-11-21 12:55] LABS: Hematocrit 42.0 % (37.0-47.0); Hemoglobin 13.7 g/dL (12.0-15.0); Immature Granulocyte Percent A 0.4 % (0-0.5); Lymphocytes Absolute Auto 1.82 K/mm3 (0.9-3.2); Mean Corpuscular HGB Conc 32.6 g/dl (32-36); Mean Corpuscular Hemoglobin 29.0 pg (26-34); Mean Corpuscular Volume 88.8 fl (80-100); Nucleated Red Blood Cells Absolute Auto 0.000 K/mm3 (0.0-0.012); Nucleated Red Blood Cells Perc 0.0 % (0.0-0.2); Platelet Count Result 239 k/mm3 (150-375); Red Blood Count 4.73 M/mm3 (4.2-5.4); White Blood Count 6.7 K/mm3 (4.5-10.0)
[2024-11-21 13:02] LABS: Alanine Aminotransferase 47 U/L (6-35); Albumin Level 4.5 g/dL (3.5-5.1); Alkaline Phosphatase 65 U/L (38-126); Anion Gap 8 mmol/L (4-12); Aspartate Amino Transferase 54 U/L (14-36); Bilirubin,Total 0.6 mg/dL (0.2-1.3); Blood Urea Nitrogen 19 mg/dL (7-17); Calcium 9.2 mg/dL (8.4-10.2); Carbon Dioxide 31 mmol/L (22-30); Chloride 98 mmol/L (98-107); Estimated Glomerular Filt Rate > 60; Glucose 149 mg/dL (65-110); Potassium 4.1 mmol/L (3.4-5.0); Sodium 137 mmol/L (137-145); Total Protein 7.5 g/dL (6.3-8.2)
[2024-11-21 15:42] LABS: Hemoglobin A1C 6.9 % (<5.7)
[2024-11-21 17:10] LABS: MALB Creatinine Ratio 44.8 mg/g (0-30)
== END 2024-11-21 07:52 | disposition home or self-care (01) ==
LOC: ANHGOSHLAB 07:52
PROVIDERS: PCP Nurse Practitioner; Visit Provider Nurse Practitioner
DX: E78.5 Hyperlipidemia, unspecified (principal); E11.9 Type 2 diabetes mellitus without complications
CPT/HCPCS: 36415; 80053; 82043; 83036; 85025

== ENCOUNTER 2025-01-24 07:38 | Outpatient (CLI) | payer MEDICARE, SELFPAY ==
--- NOTE | ~2025-01-24 | NM_ITS ---
EXAM: NM gastric emptying study DATE: 01/24/2025 12:46 INDICATION: Gastroesophageal reflux disease without esophagitis TECHNIQUE: A gastric emptying study was performed using the methodology of Isidro ISSA, et al. J Nucl Med 2007; 48:568-572. The patient was given a meal consisting of 2 scrambled eggs labeled with 0.983 mCi Tc-99m sulfur colloid, 2 slices of toast, two packages of jam, and approximately 120 mL of water. Simultaneous anterior and posterior 1-min images of the abdomen were obtained with the patient supine at multiple time points over a total period of 4 hours. The geometric mean of anterior and posterior views was determined, and the percentage retention was calculated for each time point. COMPARISON: None. FINDINGS: Gastric retention of the radiotracer-labeled meal was 61%, 34%, and 19% at the 1-hour, 2-hour, and 4-hour time points, respectively. With this technique, apparent rapid gastric emptying is suggested by <30% gastric retention at 1 hour. Delayed gastric emptying is defined by gastric retention of >90% at 1 hour, >60% retention at 2 hours, or >10% retention at 4 hours. IMPRESSION: 1. Delayed gastric emptying. Reviewed, dictated and finalized at location [facility]. [facility]
--- OUTSIDE RECORDS SUMMARY | 2025-01-24 07:41 | XMS_ITS | Clinical Summary ---
Author Organization [facility] Address [facility] [place] [address] Care Team Providers Care Check Weigher Name Role Phone Aroldo Farmer DO Primary Care Provider [phone] Social History Tobacco Use Types Packs/Day Years [...] 2008 Zoster Vaccines (1 of 2) 2008 Dexa Scan (General) 11/16/2023 COVID-19 Vaccine (1 - 2024-2 6 season) 2024 Influenza Adult (#1) 2024 RSV Immunization or 60+ Years (1 - 1-dose 75+ series) 2033 Hepatitis A Vaccines Aged Out No long er eligible based on patient's age to complete this topic Meningococcal B Vaccine Aged Out No l onger eligible based on patient's age to complete this topic Meningococcal Vaccine Aged Out No mehreen angela eligible based on patient's age to complete this topic RSV Immunizations Under 20 Months Aged Out No longer eligible based on patient's age to complete this topic Care Teams Check Weigher Relationship Specialty Start Date End Date Aroldo Farmer DO [address] [facility] [address] [place] [address] [facility] - General 07/14/13
--- OUTSIDE RECORDS SUMMARY | 2025-01-24 07:41 | XMS_ITS | Clinical Summary ---
Author Organization [facility] Address [address] [place] [address] Care Team Providers Care Concrete Block Mason Name Role Phone Brigitte Barnard DEMIAN-PROCESS CONTROL MANAGER Primary Care Provider [phone] Source Comments [facility],non-owned Affiliates and Associated Physician Practices is amultiple site organization consisting of ambulatory clinics and hospital sitesin [place], [place], [place] and [place]. This disclosure is being madepursuant to the Care Everywhere program and may not contain all information available regarding this patient. Last updated 17.[facility] Allergies Active Allergy Reactions Criticality Noted Date Comments Ezetimibe Other,GI Discomfort Low 03/30/2024 GI Upset Lactose Diarrhea 03/30/2024 Penicillins Rash,Unknown Medium 12/26/2024 She thinks she got a rash but cannot remember, has not used in a long time Medications * Be aware that medications may not be up to date on this document. Alwaysverify current medications with the patient. metFORMIN (Glucophage) 500 MG tablet Take 1 (one) tablet by mouth 3 times daily 11/16/2024 Active Active Problems No known active problems Encounters Date Type Department Care Team Description 01/22/2025 Telephone [facility] [address] [place] [id number] Devon Webber, RN Scheduling Outreach (Esophageal manometry w/24 hour pH study scheduling attempt x2) 01/10/2025 Telephone [facility] [address] [place] [address] Devon Webber, RN Scheduling Outreach (Esophageal manometry w/24 hour pH study scheduling attempt x1) 12/28/2024 Results Follow-Up [facility] Physician [facility] - [address] [address] Anitha Kim APRN-CNP 12/26/2024 2:36 PM SCHOOL ATHLETIC DIRECTOR - 12/26/2024 11:59 PM SCHOOL ATHLETIC DIRECTOR Hospital Encounter [facility] LAB OP DRAW STATION [address] [place] [address] Discharge Disposition: Home or Self Care 12/26/2024 2:30 PM SCHOOL ATHLETIC DIRECTOR Office Visit [facility] - [address] [phone] Unknown, Provider Anitha Kim APRN-CNP Elevated liver enzymes (Primary Dx); Hepatic steatosis 12/26/2024 2:00 PM SCHOOL ATHLETIC DIRECTOR Procedure visit [facility] Physician [facility] - [address] [phone] Unknown, Provider Elevated liver enzymes 12/26/2024 Travel from Last 3 Months Social History Tobacco Use Types Packs/Day Years Used Date Smoking Tobacco: Never Smokeless Tobacco: Never Tobacco Cessation:Counseling Given: Not Answered Alcohol Use Standard Drinks/Week Comments Never 0 (1 standard drink = 0.6 oz pur e alcohol) Comments Unknown Sex and Gender Information Value Date Recorded Sex Assigned at Not on file Legal Sex Female 4:36 PM CDT Gender Identity Not on file Sexual Orientation Not on file Last Filed Vital Signs Vital Sign Reading Time Taken Comments Blood Pressure 118/65 12/26/2024 2:02 PM SCHOOL ATHLETIC DIRECTOR Pulse 74 12/26/2024 2:02 PM SCHOOL ATHLETIC DIRECTOR Temperature 36.4 C (97.6 F) 12/26/2024 2:02 PM SCHOOL ATHLETIC DIRECTOR Respiratory Rate - - Oxygen Saturation 100% 12/26/2024 2:02 PM SCHOOL ATHLETIC DIRECTOR Inhaled Oxygen Concentration - - Weight 65.3 kg (144 lb) 12/26/2024 2:02 PM SCHOOL ATHLETIC DIRECTOR Height 162.6 cm (5' 4) 12/26/2024 2:02 PM SCHOOL ATHLETIC DIRECTOR Body Mass Index 24.72 12/26/2024 2:02 PM SCHOOL ATHLETIC DIRECTOR Plan of Treatment Upcoming Encounters Date Type Department Care Team (Late st Contact Info) Description 03/30/2025 10:00 AM SCHOOL ATHLETIC DIRECTOR Office Visit [facility] - GI [address] [place] [address] Anitha Kim, AMUSEMENT CENTRE MANAGER-PROCESS CONTROL MANAGER [address] [facility] [address] [place] [address] Health Maintenance Due Date Last Done Comments BONE DENSITY TESTING 1958 COLON MONITORING 1958 COLONOSCOPY - COLON CA SCREENING 1958 CT COLONOGRAPHY - COLON CA SCREENING 1958 FIT - COLON CA SCREENING 1958 FLEX SIG - COLON CA SCREENING 1958 LIPID TESTING 1960 MAMMOGRAM 1958 HEPATITIS C SCREENING 11/10/1976 DTAP/TDAP/TD VACCINES (1 - Tdap) 1977 PNEUMOCOCCAL VACCINE 50+ (1 of 1 - PCV) 2008 ZOSTER VACCINE (1 of 2) 2008 COLOGUARD (AGES 45-75) - COL ON CA SCREENING 04/24/2023 04/23/2020 Colorectal Cancer Screening 04/24/2023 DEPRESSION SCREENING 02/09/2024 MEDICARE AWV CALENDAR YEAR 2024 COVID-19 VACCINE (1 - 2024-2 6 season) 2024 INFLUENZA VACCINE (#1) 2024 Respiratory [...] on patient's age to complete this topic Goals Goal Patient Goal Type Associated Problems Recent Progress Patient-Stated? Author Medication Management General On track( 025 2:26 PM SCHOOL ATHLETIC DIRECTOR) No Nory Shannon, RN Note: Expected end date: ongoing Interventions: Take all medications as prescribed Let your doctor know right away about any changes in your medications Make sure to request a refill of your medication at least one week prior to your last dose Procedures Procedure Name Priority Date/Time Associated Diagnosis Comments IRON + TRANSFERRIN PANEL Routine 12/26/2024 3:01 PM SCHOOL ATHLETIC DIRECTOR Elevated liver enzymes HEPATITIS B SURFACE ANTIBODY QUANT Routine 12/26/2024 3:01 PM SCHOOL ATHLETIC DIRECTOR Elevated liver enzymes HEPATITIS B CORE ANTIBODY TOTAL Routine 12/26/2024 3:01 PM SCHOOL ATHLETIC DIRECTOR Elevated liver enzymes GGT Routine 12/26/2024 3:01 PM SCHOOL ATHLETIC DIRECTOR Elevated liver enzymes FERRITIN Routine 12/26/2024 3:01 PM SCHOOL ATHLETIC DIRECTOR Elevated liver enzymes MARTINEZ BLOOD SCREEN W/REFLEX TITER Routine 12/26/2024 3:01 PM SCHOOL ATHLETIC DIRECTOR Elevated liver enzymes [id number] BLOOD Routine 12/26/2024 3:01 PM SCHOOL ATHLETIC DIRECTOR Elevated liver enzymes COMPREHENSIVE METABOLIC PANEL Routine 12/26/2024 3:01 PM SCHOOL ATHLETIC DIRECTOR Elevated liver enzymes CBC W AUTO DIFFERENTIAL Routine 12/26/2024 3:01 PM SCHOOL ATHLETIC DIRECTOR Elevated liver enzymes AL LIVER ELASTOGRAPHY W/O IMAG W/I&R Routine 12/26/2024 1:45 PM SCHOOL ATHLETIC DIRECTOR Elevated liver enzymes from Last 3 Months Results * HEPATITIS B SURFACE ANTIBODY QUANT (12/26/2024 3:01 PM SCHOOL ATHLETIC DIRECTOR) Hepatitis B Virus Surface Antibody Non-react lee Non-react lee 12/26/2024 4:50 PM SCHOOL ATHLETIC DIRECTOR [facility] Comment: < 8 mIU/mL Hepatitis B surface Antibody (HBsAb). Nonreactive for HBsAb - individual is considered not immune to Hepatitis B Virus infection. Hepatitis B Surface Antibody Quantitative <3.0 <8.0 mIU/mL 12/26/2024 4:50 PM SCHOOL ATHLETIC DIRECTOR [facility] Comment: Hepatitis B Surface Antibody Numeric Result Interpretation: Nonreactive: <8.0 mIU/mL Indeterminate: 8.0 - 12.0 mIU/mL Reactive: >12.0 mIU/mL Blood BLOOD SPECIMEN / Unknown Lab Venipuncture / Unknown 12/26/2024 3:01 PM SCHOOL ATHLETIC DIRECTOR 12/26/2024 3:54 PM SCHOOL ATHLETIC DIRECTOR Narrative [facility] - 12/26/2024 4:50 PM SCHOOL ATHLETIC DIRECTOR This assay should not be used for blood, plasma, or tissue donor screening. This assay is not recommended for neonates born to HBV-infected or suspected HBV-infected mothers. Anitha Kim AMUSEMENT CENTRE MANAGER-PROCESS CONTROL MANAGER LAB - SEROLOGY CHARANJIT JHAVERI Final Result [facility] [address] [place] [address], [facility] [phone] * MARTINEZ BLOOD SCREEN W/REFLEX TITER (12/26/2024 3:01 PM SCHOOL ATHLETIC DIRECTOR) MARTINEZ IgG None Detected None Detected 12/28/2024 12:04 AM SCHOOL ATHLETIC DIRECTOR [facility] ([facility]) Comment: No Anti-Nuclear Antibodies (MARTINEZ) detected by ECTOR. No further testing will be performed. If suspicion of connective tissue disease is strong and MARTINEZ ECTOR is negative, consider testing for MARTINEZ by IFA ([id number]). INTERPRETIVE INFORMATION: Anti-Nuclear Antibodies (MARTINEZ), IgG by ECTOR Antinuclear Antibodies (MARTINEZ), IgG by ECTOR: MARTINEZ specimens are screened using enzyme-linked immunosorbent assay (ECTOR) methodology. All ECTOR results reported as Detected are further tested by indirect fluorescent assay (IFA) using HEp-2 substrate with an IgG-specific conjugate. The MARTINEZ ECTOR screen is designed to detect antibodies against dsDNA, histones, SS-A (Ro), SS-B (La), Hodge, Hodge/MEDICAL ASSISTANT, Scl-70, Valerie-1, centromeric proteins, other antigens extracted from the HEp-2 cell nucleus. MARTINEZ ECTOR assays have been reported to have lower sensitivities than MARTINEZ IFA for systemic autoimmune rheumatic diseases (SARD). Negative results do not necessarily rule out SARD. Blood BLOOD SPECIMEN / Unknown Lab Venipuncture / Unknown 12/26/2024 3:01 PM SCHOOL ATHLETIC DIRECTOR 12/26/2024 3:58 PM SCHOOL ATHLETIC DIRECTOR Anitha Kim AMUSEMENT CENTRE MANAGER-PROCESS CONTROL MANAGER LAB - CHEMISTRY ORD ERABLES Final Result Performing Organization Address City/[facility]/ZIP Co de Phone Number [facility]) [address] [place], [place] [address] * ROUBM-[id number]-INNLNDOWOGM BLOOD (12/26/2024 3:01 PM SCHOOL ATHLETIC DIRECTOR) [facility] Xzuga-9-Gkfjbs ypsin 124 90 - 200 mg/dL 12/26/2024 4:09 PM [facility] Blood BLOOD SPECIMEN / Unknown Lab Venipuncture / Unknown 12/26/2024 3:01 PM SCHOOL ATHLETIC DIRECTOR 12/26/2024 3:54 PM SCHOOL ATHLETIC DIRECTOR Anitha Kim AMUSEMENT CENTRE MANAGER-[facility] LAB - CHEMISTRY ORD ERABLES Final Result Performing Organization Address [facility]/ZIP Co de Phone Number [address] [address], [facility] [phone] * CBC WITH DIFFERENTIAL (12/26/2024 3:01 PM SCHOOL ATHLETIC DIRECTOR) [facility] WBC 7.7 4.0 - 10.7 x10E9/L 12/26/2024 4:06 PM [facility] RBC Count 4.60 3.90 - 5.20 x10E12/L 12/26/2024 4:06 PM [facility] Hemoglobin 13.4 11.9 - 15.8 g/dL 12/26/2024 4:06 PM [facility] Hematocrit 39.7 34.8 - 46.1 % 12/26/2024 4:06 PM [facility] MCV 86.3 80.0 - 98.0 fL 12/26/2024 4:06 PM [facility] MCH 29.1 26.7 - 33.6 pg 12/26/2024 4:06 PM [facility] MCHC 33.8 31.7 - 36.3 g/dL 12/26/2024 4:06 PM [facility] RDW-CV 13.0 11.3 - 14.8 % 12/26/2024 4:06 PM [facility] Platelet Count 275 150 - 420 x10E9/L 12/26/2024 4:06 PM [facility] MPV 10.5 7.8 - 11.4 fL 12/26/2024 4:06 PM [facility] Neutrophil % 62.1 41.0 - 74.0 % 12/26/2024 4:06 PM [facility] Lymphocyte % 26.9 17.0 - 47.0 % 12/26/2024 4:06 PM [facility] Monocyte % 7.7 3.0 - 11.0 % 12/26/2024 4:06 PM [facility] Eosinophil % 2.1 0.0 - 7.0 % 12/26/2024 4:06 PM [facility] Basophil % 0.9 0.0 - 1.6 % 12/26/2024 4:06 PM [facility] Immature Granulocytes % 0.3 0.0 - 1.0 % 12/26/2024 4:06 PM [facility] Neutrophil Absolute 4.78 1.60 - 7.50 x10E9/L 12/26/2024 4:06 PM [facility] Lymphocyte Absolute 2.07 1.00 - 4.40 x10E9/L 12/26/2024 4:06 PM [facility] Monocyte Absolute 0.59 0.15 - 1.00 x10E9/L 12/26/2024 4:06 PM [facility] Eosinophil Absolute 0.16 0.00 - 0.60 x10E9/L 12/26/2024 4:06 PM [facility] Basophil Absolute 0.07 0.00 - 0.13 x10E9/L 12/26/2024 4:06 PM [facility] Blood BLOOD SPECIMEN / Unknown Lab Venipuncture / Unknown 12/26/2024 3:01 PM SCHOOL ATHLETIC DIRECTOR 12/26/2024 3:46 PM SCHOOL ATHLETIC DIRECTOR us Anitha Ezequiel Kim AMUSEMENT CENTRE MANAGER-PROCESS CONTROL MANAGER LAB - HEMATOLOGY OR DERABLES Final Result [facility] [address] [place] [address], [place] [phone] * (ABNORMAL) COMPREHENSIVE METABOLIC PANEL (12/26/2024 3:01 PM SCHOOL ATHLETIC DIRECTOR) BUN 17 7 - 26 mg/dL 12/26/2024 4:15 PM [facility] Creatinine 0.65 0.56 - 0.96 mg/dL 12/26/2024 4:15 PM [facility] Sodium 140 136 - 145 mmol/L 12/26/2024 4:15 PM [facility] Potassium 4.4 3.5 - 4.5 mmol/L 12/26/2024 4:15 PM [facility] Chloride 104 98 - 107 mmol/L 12/26/2024 4:15 PM [facility] CO2 27 22 - 29 mmol/L 12/26/2024 4:15 PM [facility] Glucose 141(H) 70 - 99 mg/dL 12/26/2024 4:15 PM [facility] Calcium 9.4 8.4 - 10.2 mg/dL 12/26/2024 4:15 PM [facility] Protein Total 7.0 6.0 - 8.3 g/dL 12/26/2024 4:15 PM [facility] Albumin 4.4 3.4 - 5.0 g/dL 12/26/2024 4:15 PM [facility] Bilirubin Total 0.3 0.2 - 1.2 mg/dL 12/26/2024 4:15 PM [facility] Alkaline Phosphatase 59 40 - 150 U/L 12/26/2024 4:15 PM [facility] ALT 44 5 - 55 U/L 12/26/2024 4:15 PM [facility] AST 35(H) 5 - 34 U/L 12/26/2024 4:15 PM [facility] Anion Gap 9 6 - 16 12/26/2024 4:15 PM [facility] BUN/Creatinine Ratio 26(H) 7 - 23 12/26/2024 4:15 PM [facility] Osmolality Calculated 294 275 - 295 mOsm/kg 12/26/2024 4:15 PM [facility] Albumin/Globulin Ratio 1.7 1.1 - 2.3 12/26/2024 4:15 PM [facility] eGFR by CKD-EPI >90 >=90 mL/min/1.7 3 m2 12/26/2024 4:15 PM [facility] Comment:Estimated Glomerular Filtration Rate (eGFR) calculated using the CKD-EPI Creatinine Equation (2020), per the National Kidney Foundation and [place] Society of Nephrology recommendations. Blood BLOOD SPECIMEN / Unknown Lab Venipuncture / Unknown 12/26/2024 3:01 PM SCHOOL ATHLETIC DIRECTOR 12/26/2024 3:46 PM SCHOOL ATHLETIC DIRECTOR Anitha Kim APRN-PROCESS CONTROL MANAGER LAB - CHEMISTRY ORD ERABLES Final Result [address] [address], [facility] [phone] * HEPATITIS B CORE ANTIBODY TOTAL (12/26/2024 3:01 PM SCHOOL ATHLETIC DIRECTOR) Pathologist [facility] HBc Antibody Total Non-reacti ve Non-reacti ve 12/26/2024 4:27 PM [facility] Blood BLOOD SPECIMEN / Unknown Lab Venipuncture / Unknown 12/26/2024 3:01 PM SCHOOL ATHLETIC DIRECTOR 12/26/2024 3:54 PM SCHOOL ATHLETIC DIRECTOR Anitha Kim AMUSEMENT CENTRE MANAGER-PROCESS CONTROL MANAGER LAB - CHEMISTRY ORD ERABLES Final Result [address] [address], [place] [phone] * GGT (12/26/2024 3:01 PM SCHOOL ATHLETIC DIRECTOR) Pathologist [facility] GGT 25 9 - 64 Units/L 12/26/2024 4:15 PM [facility] Blood BLOOD SPECIMEN / Unknown Lab Venipuncture / Unknown 12/26/2024 3:01 PM SCHOOL ATHLETIC DIRECTOR 12/26/2024 3:46 PM SCHOOL ATHLETIC DIRECTOR [facility] - CHEMISTRY ORD ERABLES Final Result [address] [address], [place] [phone] * IRON + TRANSFERRIN PANEL (12/26/2024 3:01 PM SCHOOL ATHLETIC DIRECTOR) Iron 66 40 - 150 ug/dL 12/26/2024 4:10 PM SCHOOL ATHLETIC DIRECTOR [facility] Transferrin 285 174 - 382 mg/dL 12/26/2024 4:10 PM SCHOOL ATHLETIC DIRECTOR [facility] Transferrin Saturation % 19 16 - 50 % 12/26/2024 4:10 PM SCHOOL ATHLETIC DIRECTOR [facility] TIBC Calculated 356 240 - 450 ug/dL 12/26/2024 4:10 PM SCHOOL ATHLETIC DIRECTOR [facility] Blood BLOOD SPECIMEN / Unknown Lab Venipuncture / Unknown 12/26/2024 3:01 PM SCHOOL ATHLETIC DIRECTOR 12/26/2024 3:54 PM SCHOOL ATHLETIC DIRECTOR Result [facility]a [facility] - CHEMISTRY ORD ERABLES Final Result Performing Organization Address [facility]/ZIP Co de Phone Number [address] [address], [place] [phone] * FERRITIN (12/26/2024 3:01 PM SCHOOL ATHLETIC DIRECTOR) Ferritin 191 13 - 204 ng/mL 12/26/2024 4:27 PM SCHOOL ATHLETIC DIRECTOR [facility] Blood BLOOD SPECIMEN / Unknown Lab Venipuncture / Unknown 12/26/2024 3:01 PM SCHOOL ATHLETIC DIRECTOR 12/26/2024 3:54 PM SCHOOL ATHLETIC DIRECTOR Anitha Kim AMUSEMENT CENTRE [facility] LAB - CHEMISTRY ORD ERABLES Final Result Performing Organization Address City/[facility]/ZIP Co de Phone Number [address] [address], [place] [phone] * AL LIVER ELASTOGRAPHY W/O IMAG W/I&R (12/26/2024 1:45 PM SCHOOL ATHLETIC DIRECTOR) Narrative Fernando Mares MD - 12/26/2024 1:45 PM SCHOOL ATHLETIC DIRECTOR Fernando Calloway MD 12/28/2024 8:25 AM Diagnosis: Elevated liver enzymes RN verified patient NPO for prior 3 hours. Procedure explained. Date of Exam: 12/26/2024 Liver Stiffness: (LSM, kPa) median: 7.8 IQR/Median% (ideally < 30%): 9% CAP (controlled attenuation parameter): 277 Technical Difficulty: None Ordering Provider: Brigitte Barnard APRN-CNP Fax Fibroscan interpretation: I have personally reviewed the Fibroscan report and associated tracings. The calculated Liver Stiffness Measurement (LSM, kPa) indicates that: The probability of advanced liver fibrosis is: low to moderate. The loss of ultrasound signal, (controlled attenuation parameter, CAP [dB/m]), indicates that the probability of hepatic steatosis is: moderate. Fernando Smith MD The following criteria are used to indicate the probability of advanced (stage 3-4) fibrosis: < 7.0 kPa: low 7.0-8.9 kPa: low to moderate 9.0-14.9 kPa: moderate 15-20 kPa: high > 20 kPa: very high Liver stiffness > 12 kPa is associated with an increased risk of cirrhosis-related complications over the next 3-5 years (Bobreanneier, 202). Liver stiffness > 20 kPa is also associated with a high probability of complications of portal hypertension including varices and ascites. Liver stiffness > 50 kPa is associated with a high risk of variceal bleeding. These interpretations are based on the following published data: Ari J, Hagstr m H, Ekstedt M, Chiki C, Bonacci M, Cure S, Ampuero J, Nasr P, Tallab L, Canleet CM, Kehoney S, S ncsimba Y, Jatin E, Dar A, Tulio M, Riokenny J, Manan A and Ulisses-Carl M. Non-invasive tests accurately stratify patients with NAFLD based on their risk of liver-related events. J Hepatol (2021) 76: 1971-6691. Kathia PJ, Vanita M, Mirta M, et al. Accuracy of FibroScan controlled attenuation parameter and liver stiffness measurement in assessing steatosis and fibrosis in patients with nonalcoholic fatty liver disease. Gastroenterology 2019;156:5237-2297. Juana MS, Alex R, Van Natta ML, et al. Vibration-controlled transient elastography to assess fibrosis and steatosis in patients with nonalcoholic fatty liver disease. Clin Gastroenterol Hepatol 2019;17:156-163. Note that scores have been developed that incorporate the Fibroscan liver stiffness measurement from large cohorts of patients with liver biopsies to further refine the ability of Fibroscan to identify patients with MASH and advanced fibrosis. These include the FAST (Fibroscan-AST) score (Tamika, 2021) and the Agile3+ and Agile4 scores (Nirav, 2022; Maria Eugenia, 2023). Tamika TA, Van Natta ML, Filiberto M, Charbel A, et al. Validation of the accuracy of the FAST score for detecting patients with at-risk nonalcoholic steatohepatitis (LE) in a [facility] cohort and comparison to other non-invasive algorithms. PLoS ONE (2021) 17: [id number]. Nirav AJ, Juliet J, Younjose ZM, et al. Enhanced diagnosis of advanced fibrosis and cirrhosis in individuals with NAFLD using FibroScan-based Agile scores. J Hepatol (2022) 78: 247-259. Maria Eugenia et al. Vibration-controlled transient elastography scores to predict liver-related events in steatotic liver disease. ILENE (2023) 331: 7053-2509 Fibroscan LSM can also be used with laboratory parameters without formulas to assess prognosis. According to the Baveno-VII criteria (Velázquez, 2021), Fibroscan LSM <=15 kPa plus a platelet count of >=890s252/L rules out clinically significant portal hypertension (sensitivity and negative predictive value >90%) in patients with compensated advanced chronic liver disease. Velázquez R, Zeek Reddy, Andres G, Lorena T, Roberth Jean Baptiste on behalf of the Baveno VII Faculty. Baveno VII--Renewing consensus in portal hypertension. J Hepatol (2021) 76: 959-974 Assessing the likelihood of advanced fibrosis in patients with intermediate liver stiffness measurement (LSM) by Fibroscan (e.g., 8-15 kPa) can be improved by also calculating the FIB-4 score (Trenton et al. Hepatology Communications 2019;3:2705-7703) or NAFLD Fibrosis score (Bronson et al. Clinical Gastroenterology and Hepatology 2019;17:7062-6153 using routine clinical data. Notes: 1. Fibroscan cannot reliably identify earlier stages of fibrosis (ie distinguish F0 from F1 and F2) and thus a histologic stage cannot be predicted from the Fibroscan reading. 2. Liver stiffness can be increased by factors other than fibrosis including passive congestion, infiltrative processes, active alcoholism, recent moderate alcohol consumption in the 2 weeks before the exam, biliary obstruction and marked inflammation. The interpretation of the Fibroscan result provided above may not have taken such clinical factors into account. 3. Identifying steatosis by an elevated CAP score (> 250 db/m) is useful for establishing a diagnosis of steatotic liver disease. However the severity of steatosis does not correlate with liver related outcomes. Disease etiology also influences Fibroscan cutoff values for fibrosis stages and the following cutoffs have been proposed (Angel et al, Clin Gastro Hepatol 2015; 13:27-36): Cutoffs for Stage 3 and Stage 4 fibrosis respectively: Hepatitis B: >9 and >11.7 kPa Hepatitis C: >9.5 and >12.5 kPa HCV-HIV: >11 and >14 kPa Cholestatic liver diseases: >10 and >17.9 kPa MASLD/MASH: >10 and >14 kPa CAP estimates of steatosis: normal <200 dB/m mild 200 to 250 dB/m moderate 250-290 dB/m substantial > 290 dB/m (Note that Fibroscan is not a quantitative measure of liver fat.) These criteria are estimates and may change as additional supporting data becomes available. (This additional interpretive data was last updated 02/11/24.) [email or web address] Anitha Kim AMUSEMENT CENTRE MANAGER-PROCESS CONTROL MANAGER PROCEDURE/M INOR SURGICAL ORDERABLES Edited Result - Final from Last 3 Months Insurance [employer] MEDICARE ADV SELF PAY NO INSURANCE Member Subscriber Plan / Payer (Ef fective for All Dates) Name:Keeley Shabazz Member ID:Not on file Relation to Subscriber:Not on file Name:KEELEY SHABAZZ Subscriber ID:Not on file (Home) Address: [address] [place] [address] Payer ID:Not on file Group ID:Not on file Type:Self Pay Address: [place], [place] Care Teams Concrete Block Mason Relationship Specialty Start Date End Date Brigitte Barnard APRN-ARISTIDES [address] [place] [address] PCP - General Nurse Practitioner 12/26/24
--- OUTSIDE RECORDS SUMMARY | 2025-01-24 07:41 | XMS_ITS | Encounter Summary ---
Author Organization [facility] Address [address] [place] [address] Care Team Providers Care Hand Collator Name Role Phone Brigitte Barnard [facility] Primary Care Provider [phone] Encounter Details Date Type Department Care Team (Late Contact Info) Description 12/28/2024 Results Follow-Up [facility] [address] [place] [address] [phone] Anitha Kim APRN-INSPECTOR RUBBER ST[employer] DIE [address] [place] [address] [address] [place] [address] Social History Tobacco Use Types Packs/Day Years Used Date Smoking Tobacco: Never Smokeless Tobacco: Never Alcohol Use Standard Drinks/Week Comments Never 0 (1 standard drink = 0.6 oz pur e alcohol) Comments Unknown Sex and Gender Information Value Date Recorded Sex Assigned at Not on file Legal Sex Female 4:36 PM CDT Gender Identity Not on file Sexual Orientation Not on file documented as of this encounter Plan of Treatment Upcoming Encounters Date Type Department Care Team (Late st Contact Info) Description 03/30/2025 10:00 AM BOTTLE CASER Office Visit [facility] [address] [place] [address] [phone] Anitah Kim APRN-INSPECTOR [employer]IE [address] [place] [address] [address] [facility] [place], [place] [id number] documented as of this encounter Goals Goal Patient Goal Type Associated Problems Recent Progress Patient-Stated? Author Medication Management General On track( 025 2:26 PM BOTTLE CASER) Nory Canales RN Note: Expected end date: ongoing Interventions: Take all medications as prescribed Let your doctor know right away about any changes in your medications Make sure to request a refill of your medication at least one week prior to your last dose documented as of this encounter Visit Diagnoses Not on filedocumented in this encounter Care Teams Hand Collator Relationship Specialty Start Date End Date Brigitte Barnard, DEMIAN-INSPECTOR [employer] DIE [address] [place] [address] PCP - General Nurse Practitioner 12/26/24 documented as of this encounter
--- OUTSIDE RECORDS SUMMARY | 2025-01-24 07:41 | XMS_ITS | Clinical Summary ---
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
== END 2025-01-24 07:39 | disposition home or self-care (01) ==
PROVIDERS: PCP Internal Medicine; Visit Provider Nurse Practitioner
DX: K31.84 Gastroparesis (principal)
CPT/HCPCS: 78264; A9541